=== PATIENT | male | born 2000 | race African-American/Black ===

== ENCOUNTER 2021-05-24 13:25 | Emergency (ER) | payer BC ==
[2021-05-24 13:29] VITALS: BMI 19.3
[2021-05-24] MEDS ORDERED: ONDANSETRON 4 MG/2 ML VIAL IVPUSH ONE (14:09)
[2021-05-24] MEDS ORDERED: SODIUM CHLORIDE 0.9% 500 ML INFUS.BAG IV ONE (14:09)
[2021-05-24] MEDS ORDERED: ONDANSETRON 4 MG/2 ML VIAL ONE (14:20)
[2021-05-24 14:42] LABS: BASO % 0.3 % (0-2.0); EOS % 3.3 % (0-4.5); HEMATOCRIT 43.3 % (35.4-49); HEMOGLOBIN 14.7 GM/dL (11.7-16.9); LYMPH % 25.9 % (8-40); MCH 30.6 pg (25.7-33.7); MEAN CELL VOLUME 90.1 fl (80-96); MEAN PLT VOLUME 8.9 fl (7.5-11.1); MONO % 9.9 % (3.8-10.2); NEUT % 60.6 % (42.8-82.8); PLATELET COUNT 177 10^3/uL (134-434); RBC 4.81 M/mm3 (4.00-5.60); RDW 13.8 % (11.9-15.9); WHITE BLOOD COUNT 4.4 K/mm3 (4.0-10.0)
[2021-05-24 14:52] LABS: CALCIUM 9.8 mg/dL (8.5-10.1)
[2021-05-24 14:53] LABS: ALBUMIN 4.5 g/dl (3.4-5.0); BLOOD UREA NITROGEN 14.1 mg/dL (7-18)
[2021-05-24 14:56] LABS: CREATININE 0.9 mg/dL (0.55-1.3)
[2021-05-24 14:58] LABS: BILIRUBIN,TOTAL 0.4 mg/dL (0.2-1); TOT PROT 7.9 g/dl (6.4-8.2)
[2021-05-24 16:14] VITALS: BP 112/54; PULSE 65; TEMP 97.8
== END 2021-05-24 16:13 | disposition home or self-care (01) ==
LOC: JERFT 13:25 → JER 13:25 → JERFT 16:13
PROC: 3E033GC Introduction of Other Therapeutic Substance into Peripheral Vein, Percutaneous Approach (ICD-10-PCS; principal; 2021-05-24)
DX: K52.9 Noninfective gastroenteritis and colitis, unspecified (principal)
CPT/HCPCS: 36415; 80053; 83690; 85025; 99284-25

== ENCOUNTER 2021-10-16 14:29 | Emergency (ER) | payer BC ==
[2021-10-16 14:42] VITALS: BP 104/77; PULSE 81; RESP 18; TEMP 98.4
[2021-10-16] MEDS ORDERED: hydrOXYzine PAMOATE 25 MG CAPSULE (FP) PO PRN (16:40)
[2021-10-16] MEDS ORDERED: CALAMINE 8% TOPICAL LOTION 177 ML BOTTLE TP PRN (16:41)
== END 2021-10-16 16:46 ==
LOC: JERFT 14:29
DX: B08.4 Enteroviral vesicular stomatitis with exanthem (principal)
CPT/HCPCS: 99283-25

== ENCOUNTER 2022-10-23 09:02 | Emergency (ER) | payer BC ==
[2022-10-23 09:29] VITALS: BP 113/73; RESP 20; BMI 20.9
[2022-10-23 10:17] VITALS: PULSE 85
== END 2022-10-23 10:43 | disposition home or self-care (01) ==
LOC: JERFT 09:02
DX: R05.9 Cough, unspecified (principal); R06.02 Shortness of breath
CPT/HCPCS: 71046-TC-FY

== ENCOUNTER 2023-02-08 13:33 | Emergency (ER) | payer BC ==
[2023-02-08 13:53] VITALS: BP 118/73; PULSE 98; RESP 18; TEMP 98.2; BMI 18.8
[2023-02-08] MEDS ORDERED: IBUPROFEN 400 MG TABLET (FP) PO ONE ×2 (14:02→14:05)
[2023-02-08] MEDS ORDERED: predniSONE 20 MG TABLET (UD) PO ONE (14:02)
[2023-02-08] MEDS ORDERED: ALBUTEROL SO4 2.5/IPRATROPIUM 0.5 INH SOL 3 ML VIAL.NEB. NEB ONE ×3 (14:02→14:05)
[2023-02-08] MEDS ORDERED: predniSONE 20 MG TABLET (UD) ONE (14:05)
[2023-02-09] MEDS ORDERED: predniSONE 20 MG TABLET (UD) PO ONE (14:02)
== END 2023-02-08 15:50 | disposition home or self-care (01) ==
LOC: FER 13:33
PROC: 3E0F7GC Introduction of Other Therapeutic Substance into Respiratory Tract, Via Natural or Artificial Opening (ICD-10-PCS; principal; 2023-02-08)
DX: R05.9 Cough, unspecified (principal); R19.7 Diarrhea, unspecified; J06.9 Acute upper respiratory infection, unspecified; Z20.822 Contact with and (suspected) exposure to COVID-19
CPT/HCPCS: 0241U-QW; 99283-25